=== PATIENT | male | born 1960 | race African-American/Black ===

== ENCOUNTER 2019-07-01 12:12 | Emergency (ER) | payer OTHER ==
[2019-07-01 12:19] VITALS: BP 132/69; PULSE 117; TEMP 98; BMI 21.2
[2019-07-01] MEDS ORDERED: LIDOCAINE HCL 2% JELLY 10 ML CARTRIDGE ONE (13:19)
--- NOTE | 2019-07-01 14:04 | PDOC ---
History of Present Illness - General Chief Complaint: Urinary Problem Stated Complaint: Urinary Problem Time Seen by Provider: 07/01/19 12:55 History Source: Patient Exam Limitations: No Limitations - History of Present Illness Initial Comments: 07/01/19 14:19 58 yo M with a hx of BPH presents to the emergency department with lower abdominal midline pain that has been ongoing this morning with referral from his primary medical doctor to present to the ED. Per the patient, he uses his flomax intermittently and has not followed up with a urologist regarding his prostate in 2 years. He states he tried to urinate this morning but was unable to produce urine. He denies hematuria. Denies hx of nephrolithiasis, urinary bladder/ureter/renal surgery, and fevers. Denies the following: chills, nausea, vomiting, chest pain, SOB, lightheadedness, diarrhea, constipation, and leg pain /swelling. Allergies: NKDA Past History - Past Medical History Allergies/Adverse Reactions: Allergies Allergy/AdvReac Type Severity Reaction Status Date / Time No Known Allergies Allergy Verified 07/01/19 12:19 Home Medications: Ambulatory Orders Azithromycin [Zithromax 250mg Tablets -] 250 mg PO UTDICT #6 tab 02/17/16 Promethazine HCl [Phenergan Plain 6.25 MG/5 ML -] 5 ml PO QID #60 ml 02/17/16 COPD: No - Immunization History Immunization Up to Date: Yes - Psycho Social/Smoking Cessation Hx Smoking History: Never smoked Hx Alcohol Use: No Review of Systems - Review of Systems Able to Perform ROS?: Yes Is the patient limited Finnish proficient: No Constitutional: No: Chills, Diaphoresis, Fever, Weakness HEENTM: No: Eye Pain, Ear Pain, Nose Pain, Throat Pain, Mouth Pain Respiratory: No: Cough, Shortness of Breath, Hemoptysis Cardiac (ROS): No: Chest Pain, Lightheadedness, Palpitations, Syncope, Chest Tightness ABD/GI: No: Constipated, Diarrhea, Nausea, Rectal Bleeding, Vomiting, Tarry Stools : Yes: Other (urine retention). No: Burning, Dysuria Musculoskeletal: No: Back Pain, Joint Pain, Neck Pain Integumentary: No: Bruising, Erythema, Rash Neurological: No: Headache, Numbness, Tingling, Tremors Psychiatric: No: Stressors, Change in Appetite Endocrine: No: Unexplained Weight Gain Hematologic/Lymphatic: No: Anemia *Physical Exam - Vital Signs Last Vital Signs Temp Pulse Resp BP Pulse Ox 98 F 117 H 18 132/69 99 07/01/19 12:15 07/01/19 12:15 07/01/19 12:15 07/01/19 12:15 07/01/19 12:15 - Physical Exam General Appearance: Yes: Nourished, Appropriately Dressed. No: Apparent Distress, Intoxicated HEENT: positive: EOMI, HODAN, Normal Voice, Symmetrical, Pharynx Normal, Hearing Grossly Normal. negative: Pale Conjunctivae, Scleral Icterus (R), Scleral Icterus (L), Muffled/Hoarse voice, Pharyngeal Erythema, Tonsillar Exudate, Tonsillar Erythema, Nasal Congestion, Rhinorrhea, Sinus Tenderness, Excessive drooling Neck: positive: Trachea midline, Supple. negative: Tender, Lymphadenopathy (R) , Lymphadenopathy (L), Tender lateral, Tender midline Respiratory/Chest: positive: Lungs Clear, Normal Breath Sounds. negative: Chest Tender, Respiratory Distress, Accessory Muscle Use, Crackles, Rales, Rhonchi, Stridor, Wheezing Cardiovascular: positive: Regular Rhythm, Regular Rate, S1, S2. negative: Systolic Murmur Gastrointestinal/Abdominal: positive: Normal Bowel Sounds, Tender (lower midline abdominal pain), Flat, Soft, Other (obvious bladder distension) Male Genitalia: positive: normal genitalia. negative: hematuria Lymphatic: negative: Adenopathy Musculoskeletal: positive: Normal Inspection. negative: CVA Tenderness, Vertebral Tenderness Extremity: positive: Normal Capillary Refill, Normal Inspection, Normal Range of Motion. negative: Tender Integumentary: positive: Normal Color, Dry, Warm Neurologic: positive: senior budget analyst II-XII NML intact, Fully Oriented, Alert, Normal Mood/ Affect, Normal Response, Motor Strength 5/5, Other (hearing aids in bilaterally) ED Treatment Course - LABORATORY CBC & Chemistry Diagram: 07/01/19 14:30 07/01/19 14:30 Medical Decision Making - Medical Decision Making 58 yo M with a hx of BPH presents to the emergency department with lower abdominal midline pain that has been ongoing this morning with referral from his primary medical doctor to present to the ED. Initial vitals Initial Vital Signs Temp Pulse Resp BP Pulse Ox 98 F 117 H 18 132/69 99 07/01/19 12:15 07/01/19 12:15 07/01/19 12:15 07/01/19 12:15 07/01/19 12:15 Work up: POCUS shows distended bladder with approximately 1 L of fluid. moderate hydronephrosis noted bilaterally. Catheter 20 faroese placed with 1.1 L urine output. Some blood was noted because of catheter placement trauma. Will rule out infection and TIFFANIE Laboratory Tests 07/01/19 07/01/19 07/01/19 14:30 14:30 14:35 WBC 9.1 RBC 4.24 Hgb 12.9 Hct 38.8 MCV 91.6 MCH 30.4 MCHC 33.2 RDW 12.7 Plt Count 306 MPV 7.6 Absolute Neuts (auto) 8.4 H Neutrophils % 92.4 H D Neutrophils % (Manual) 94.0 H Band Neutrophils % 0.0 Lymphocytes % 3.4 L D Lymphocytes % (Manual) 4.0 L Monocytes % 3.8 Monocytes % (Manual) 2 L Eosinophils % 0.1 D Eosinophils % (Manual) 0.0 Basophils % 0.3 Basophils % (Manual) 0.0 Myelocytes % (Man) 0 Promyelocytes % (Man) 0 Blast Cells % (Manual) 0 Nucleated RBC % 0 Metamyelocytes 0 Hypochromia 0 Platelet Estimate Normal Polychromasia 0 Poikilocytosis 0 Anisocytosis 0 Microcytosis 0 Macrocytosis 0 Sodium 138 Potassium 4.9 Chloride 102 Carbon Dioxide 30 Anion Gap 5 L BUN 14.9 Creatinine 0.8 Est GFR (CKD-EPI)AfAm 114.93 Est GFR (CKD-EPI)NonAf 99.16 Random Glucose 125 H Calcium 9.6 Total Bilirubin 0.6 AST 23 ALT 24 Alkaline Phosphatase 63 Total Protein 7.2 Albumin 4.1 Urine Color Red Urine Appearance Clear Urine pH 7.5 Ur Specific [place] 1.009 L Urine Protein 1+ H Urine Glucose (UA) Negative Urine Ketones Negative Urine Blood 3+ H Urine Nitrite Negative Urine Bilirubin Negative Urine Urobilinogen 1.0 Ur Leukocyte Esterase Trace Urine WBC (Auto) 3 Urine RBC (Auto) 1234 Urine Casts (Auto) 1 U Epithel Cells (Auto) 1.1 Urine Bacteria (Auto) 2.6 Patient to be discharged. I spoke to Dr. Royal Martins who stated he will follow up with the patient at 1:00 pm. The patient is aware to see Dr. Martins and was explicitly told to follow up. Dispo: Discharge 07/01/19 16:04 Discharge - Discharge Information Problems reviewed: Yes Clinical Impression/Diagnosis: Urinary retention Condition: Good Disposition: HOME - Admission No - Follow up/Referral Referrals: Smooth Martins MD [Primary Care Provider] - Millie Martins MD [Staff Physician] - - Patient Discharge Instructions Patient Printed Discharge Instructions: How to Care for Your Birmingham Catheter -- Male, DI for Urinary Retention in Men Additional Instructions: You were seen in the emergency department for your urinary retention. You were given a birmingham today, which is the tubing going to your bladder. I have attached reading material on birmingham catheter care. This is very important. I spoke to Dr. Martins, who is the urologist. He is aware of your condition and wants to see you JULY 05 at 1:00 pm. THIS IS VERY IMPORTANT. Again, please follow up with him, which HIS ADDRESS AND PHONE NUMBER are listed in the discharge papers. PLEASE CALL HIS OFFICE TODAY OR TOMORROW TO ARRANGE THE APPOINTMENT FOR FRIDAY. You need to follow up with him. He has not seen you in two years. Please return to the emergency department if you have worsening symptoms or new concerning symptoms. Thank you. Print Language: SAUDI ARABIAN - Post Discharge Activity Work/Back to School Note: Back to Work
--- NOTE | 2019-07-01 14:24 | PDOC ---
Attending Attestation - Resident Resident Name: MasonEze - ED Attending Attestation I have performed the following: I have examined & evaluated the patient, The case was reviewed & discussed with the resident, I agree w/resident's findings & plan, Exceptions are as noted - HPI HPI: 07/01/19 15:12 Mr. Thomson is a 58-year-old male with a history of deafness who presents emergency department with urinary retention Patient states he has been unable to void since last night. Due to his inability to void, he was up all night unable to sleep due to suprapubic pain. No fevers or chills No prior hematuria No flank pain 07/01/19 15:12 - Physicial Exam PE: 07/01/19 14:23 GENERAL: The patient is in no acute distress, patient seen after placement of Negron catheter (clear urine). ENT: Hearing aid left ear , hard of hearing NECK: Normal range of motion, supple LUNGS: Breath sounds equal, clear to auscultation bilaterally. No wheezes, and no crackles. HEART:Regular rate and rhythm, normal S1 and S2 without murmur, rub or gallop. ABDOMEN: Soft, nontender, normoactive bowel sounds. EXTREMITIES: Normal range of motion, no edema. NEUROLOGICAL: Cranial nerves II through XII grossly intact. Normal speech. No focal neurological deficits. SKIN: Warm, Dry, normal turgor, no rashes or lesions noted. 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 Martins He is actually seen this patient in the past and has wanted to follow-up with him Plan will be to send this patient to see him for follow-up 07/01/19 15:13 Laboratory Tests 07/01/19 07/01/19 14:30 14:35 WBC 9.1 Hgb 12.9 Hct 38.8 Plt Count 306 Urine Blood 3+ H Urine Nitrite Negative Ur Leukocyte Esterase Trace Urine WBC (Auto) 3 Urine RBC (Auto) 1234 07/01/19 15:49 Laboratory Tests 07/01/19 14:30 BUN 14.9 Creatinine 0.8 Will discharge to home Pt can follow up with Urology as an outpatient Return to the ER for any other concerns or complaints
[2019-07-01 14:42] LABS: BASO % 0.3 % (0-2.0); EOS % 0.1 % (0-4.5); HEMATOCRIT 38.8 % (35.4-49); HEMOGLOBIN 12.9 GM/dL (11.7-16.9); LYMPH % 3.4 % (8-40); MCH 30.4 pg (25.7-33.7); MCHC 33.2 g/dl (32.0-35.9); MEAN CELL VOLUME 91.6 fl (80-96); MEAN PLT VOLUME 7.6 fl (7.5-11.1); MONO % 3.8 % (3.8-10.2); NEUT % 92.4 % (42.8-82.8); PLATELET COUNT 306 K/MM3 (134-434); RBC 4.24 M/mm3 (4.00-5.60); RDW 12.7 % (11.9-15.9); WHITE BLOOD COUNT 9.1 K/mm3 (4.0-10.0)
[2019-07-01 15:00] LABS: EPI CELLS 1.1 /HPF (0-5/HPF); HYALINE CASTS 1 /lpf (0-8); PH,URINE 7.5 (5.0-8.0); URINE APPEARANCE CLEAR; URINE BACTERIA 2.6 /hpf (NEGATIVE); URINE BILIRUBIN NEGATIVE (NEGATIVE); URINE COLOR RED; URINE GLUCOSE (UA) NEGATIVE (NEGATIVE); URINE KETONE NEGATIVE (NEGATIVE); URINE LEUK ESTERASE TRACE (NEGATIVE); URINE NITRITE NEGATIVE (NEGATIVE); URINE PROTEIN 1+ (NEGATIVE); URINE RBC 1234 /hpf (0-4); URINE WBC 3 /hpf (0-5)
[2019-07-01 15:21] LABS: ANISOCYTOSIS 0; MACROCYTOSIS 0; PLATELET ESTIMATE NORMAL
[2019-07-01 15:47] LABS: ALBUMIN 4.1 g/dl (3.4-5.0); BILIRUBIN,TOTAL 0.6 mg/dL (0.2-1); BLOOD UREA NITROGEN 14.9 mg/dL (7-18); CALCIUM 9.6 mg/dL (8.5-10.1); CREATININE 0.8 mg/dL (0.55-1.3); POTASSIUM 4.9 mmol/L (3.5-5.1); TOT PROT 7.2 g/dl (6.4-8.2)
== END 2019-07-01 17:36 | disposition home or self-care (01) ==
LOC: JER 12:12
PROC: 0T9B70Z Drainage of Bladder with Drainage Device, Via Natural or Artificial Opening (ICD-10-PCS; principal; 2019-07-01)
PROC: BT4JZZZ Ultrasonography of Kidneys and Bladder (ICD-10-PCS; 2019-07-01)
DX: N40.1 Benign prostatic hyperplasia with lower urinary tract symptoms (principal); R33.8 Other retention of urine
CPT/HCPCS: 36415; 80053; 81003; 85025; 87086; 99283-25

== ENCOUNTER 2019-08-31 15:49 | Emergency (ER) | payer OTHER ==
[2019-08-31 15:59] VITALS: TEMP 98; BMI 21.4
--- NOTE | 2019-08-31 17:02 | PDOC ---
History of Present Illness - General Chief Complaint: Urinary Problem Stated Complaint: PAINFUL URINATION Time Seen by Provider: 08/31/19 16:25 History Source: Patient - History of Present Illness Timing/Duration: reports: getting worse Quality: reports: severe Past History - Past Medical History Allergies/Adverse Reactions: Allergies Allergy/AdvReac Type Severity Reaction Status Date / Time No Known Allergies Allergy Verified 08/31/19 15:59 Home Medications: Ambulatory Orders Azithromycin [Zithromax 250mg Tablets -] 250 mg PO UTDICT #6 tab 02/17/16 Promethazine HCl [Phenergan Plain 6.25 MG/5 ML -] 5 ml PO QID #60 ml 02/17/16 COPD: No - Immunization History Immunization Up to Date: Yes - Psycho Social/Smoking Cessation Hx Smoking History: Never smoked Hx Alcohol Use: No Review of Systems - Review of Systems Constitutional: No: Chills, Fever ABD/GI: Yes: Abdominal cramping. No: Nausea, Vomiting : No: Flank Pain, Hematuria *Physical Exam - Vital Signs Last Vital Signs Temp Pulse Resp BP Pulse Ox 98 F 120 H 18 0/0 L 99 08/31/19 15:55 08/31/19 15:55 08/31/19 15:55 08/31/19 15:55 08/31/19 15:55 - Physical Exam General Appearance: Yes: Appropriately Dressed, Severe Distress HEENT: positive: Normal Voice Respiratory/Chest: negative: Respiratory Distress Gastrointestinal/Abdominal: positive: Tender (to lower bd), Soft Musculoskeletal: negative: CVA Tenderness Integumentary: positive: Dry, Warm Neurologic: positive: Fully Oriented, Alert, Normal Mood/Affect Medical Decision Making - Medical Decision Making 08/31/19 17:00 59-year-old male, h/o BPH on Flomax presents with urinary retention. Last voided was this a.m. but very small amount. Now complaining of lower abdominal pressure. No hematuria, nausea, vomiting, fever or chills. Patient was seen for same in ED several months ago and sent home with Birmingham with leg bag. Follows up with Dr. Martins of urology see exam Urinary retention 2/2 BPH Birmingham inserted w/ ~500 UO UA neg Rpt HR 110 w/ BP 140/84 As per d/w Dr Martins, dc w/ birmingham to leg bag, to f/u in clinic Discharge - Discharge Information Problems reviewed: Yes Clinical Impression/Diagnosis: Urinary retention Condition: Improved Disposition: HOME - Follow up/Referral - Patient Discharge Instructions Additional Instructions: You had a Birmingham inserted for urinary retention Please call Dr. Martins this week to make an appointment to be seen next week - Post Discharge Activity
[2019-08-31 17:10] LABS: EPI CELLS 0.1 /HPF (0-5/HPF); HYALINE CASTS 0 /lpf (0-8); URINE APPEARANCE CLEAR; URINE BACTERIA 0 /hpf (NEGATIVE); URINE BILIRUBIN NEGATIVE (NEGATIVE); URINE COLOR YELLOW; URINE GLUCOSE (UA) NEGATIVE (NEGATIVE); URINE KETONE NEGATIVE (NEGATIVE); URINE LEUK ESTERASE NEGATIVE (NEGATIVE); URINE NITRITE NEGATIVE (NEGATIVE); URINE PROTEIN NEGATIVE (NEGATIVE); URINE RBC 14 /hpf (0-4); URINE UROBILINOGEN 0.2 mg/dL (0.2-1.0); URINE WBC 0 /hpf (0-5)
[2019-08-31 17:48] VITALS: BP 119/64; PULSE 83
== END 2019-08-31 17:49 | disposition home or self-care (01) ==
LOC: JER 15:49
PROC: 0T9B70Z Drainage of Bladder with Drainage Device, Via Natural or Artificial Opening (ICD-10-PCS; principal; 2019-08-31)
DX: N40.1 Benign prostatic hyperplasia with lower urinary tract symptoms (principal); R33.8 Other retention of urine
CPT/HCPCS: 81003; 87086; 99283-25

== ENCOUNTER 2019-11-21 14:36 | Emergency (ER) | payer OTHER ==
[2019-11-21 14:49] VITALS: BP 127/99; PULSE 103; TEMP 98.3; BMI 21.1
--- NOTE | 2019-11-21 15:22 | PDOC ---
History of Present Illness - General Chief Complaint: Urinary Problem Stated Complaint: URINARY PROBLEM Time Seen by Provider: 11/21/19 14:41 History Source: Patient Exam Limitations: No Limitations - History of Present Illness Initial Comments: 11/21/19 15:20 Pt is a 59 y/o male who presents to the ED with complaint of inability to urinate fully all day today. He has a history of kidney stones with lithotripsy on 10/25/19. He had a Negron catheter since that time until 3 days ago. The patient states he was put on 3 days of antibiotics and Flomax. He completed the abx but continues to take the Flomax. The patient states he has tried to urinate many times today and is only dribbling urine. He denies any blood in his urine. He denies any fevers or chills. He admits to severe abdominal pain. Pt is very hard of hearing so history and exam is limited. Past History - Past Medical History Allergies/Adverse Reactions: Allergies Allergy/AdvReac Type Severity Reaction Status Date / Time No Known Allergies Allergy Verified 11/21/19 14:47 Home Medications: Ambulatory Orders Azithromycin [Zithromax 250mg Tablets -] 250 mg PO UTDICT #6 tab 02/17/16 Promethazine HCl [Phenergan Plain 6.25 MG/5 ML -] 5 ml PO QID #60 ml 02/17/16 Sulfamethoxazole/Trimethoprim [Bactrim Ds Tablet] 1 each PO BID #20 tablet 11/21/19 COPD: No - Immunization History Immunization Up to Date: Yes - Psycho Social/Smoking Cessation Hx Smoking History: Never smoked Hx Alcohol Use: No Review of Systems - Review of Systems Comments:: 11/21/19 15:48 Review of Systems Able to Perform ROS?: Yes Constitutional: No: Fever, Chills, Loss of Appetite, Night Sweats, Weakness HEENTM: No: Eye Pain, Vision changes, Ear Pain, Throat Pain, Throat Swelling, Mouth Pain, Difficulty Swallowing Respiratory: No: Cough, Shortness of Breath, Wheezing, Sputum Production Cardiac (ROS): No: Chest Pain, Chest Tightness, Palpitations, Irregular Heart Beat, Edema ABD/GI: No: Nausea, Vomiting, Abdominal Pain, Diarrhea : No Dysuria, No Hematuria, No Frequency, No Urgency; + urinary retention, dribbling urine, no hematuria Musculoskeletal: No: Muscle Pain, Back Pain, Joint Pain, Muscle Weakness, Neck Pain Integumentary: No: Lesions, Rash Neurological: No: Headache, Numbness, Tingling, Weakness, Speech Difficulties *Physical Exam - Vital Signs Last Vital Signs Temp Pulse Resp BP Pulse Ox 98.3 F 103 H 20 127/99 99 11/21/19 14:40 11/21/19 14:40 11/21/19 14:40 11/21/19 14:40 11/21/19 14:40 - Physical Exam 11/21/19 15:49 General Appearance: Nourished, Appropriately Dressed, No Distress HEENT: EOMI, Normal Voice, Very hard of hearing Neck: Supple, No Lymphadenopathy (R), No Lymphadenopathy (L), No Rigidity, No Decreased range of motion Respiratory/Chest: Lungs Clear, Normal Breath Sounds. No Respiratory Distress, No Accessory Muscle Use Cardiovascular: Regular Rhythm, Regular Rate, S1, S2 Gastrointestinal/Abdominal: Normal Bowel Sounds, Soft. Non-tender, No Guarding, No Rebound, No Rigidity; significant suprapubic discomfort secondary to fullness, no cva tenderness b/l Musculoskeletal: Normal Inspection. No Decreased Range of Motion Extremity: Normal Capillary Refill, Normal Inspection Integumentary: Normal Color, Dry. No Rash Neurologic: central communications specialist II-XII NML intact, Fully Oriented, Alert, Normal Mood/Affect, Normal Response Medical Decision Making - Medical Decision Making 11/21/19 15:51 Assessment: Pt is a 59 y/o male with urinary retention since earlier today. Plan: -urinary catheter (attempted twice with 14G and 16G Negron without success), 14G Coude catheter passed and 500cc out of clear yellow urine immediately -Negron to leg bag -Ua/UCX -Will reassess 11/21/19 16:10 Pt feeling much better after the Negron was placed. He will be discharged with a Negron to leg bag. He understands that he must follow up with his urologist this week and he will call him tomorrow for further evaluation and treatment. He will be discharged with an antibiotic for his urine. He understands and agrees with this treatment and plan and he is stable for discharge. Discharge - Discharge Information Problems reviewed: Yes Clinical Impression/Diagnosis: Acute urinary retention Condition: Stable Disposition: HOME - Additional Discharge Information Prescriptions: Sulfamethoxazole/Trimethoprim [Bactrim Ds Tablet] 1 each PO BID #20 tablet - Follow up/Referral - Patient Discharge Instructions Patient Printed Discharge Instructions: DI for Urinary Retention in Men, How to Care for Your Negron Catheter -- Male Additional Instructions: Be sure to call your urologist tomorrow to schedule an appointment this week. T greyson your antibiotics and complete the entire course. Keep your Negron clean. - Post Discharge Activity
[2019-11-21 15:56] LABS: EPI CELLS 5 /uL (0-25.1); HYALINE CASTS 2 /uL (0-3.1); PH,URINE 5.5 (5.0-8.0); URINE APPEARANCE CLEAR; URINE BACTERIA ABOVE LINEARITY /uL (0-1359); URINE BILIRUBIN NEGATIVE (NEGATIVE); URINE COLOR YELLOW; URINE GLUCOSE (UA) NEGATIVE (NEGATIVE); URINE KETONE NEGATIVE (NEGATIVE); URINE LEUK ESTERASE TRACE (NEGATIVE); URINE NITRITE POSITIVE (NEGATIVE); URINE PROTEIN NEGATIVE (NEGATIVE); URINE RBC 8 /uL (0-23.9); URINE UROBILINOGEN 0.2 mg/dL (0.2-1.0); URINE WBC 53 /uL (0-25.8)
[2019-11-21] MEDS ORDERED: SULFAMETHOXAZOLE/TRIMETHOPRIM 800MG/160MG D.S. TABLET PO ONE (16:18)
[2019-11-21] MEDS ORDERED: SULFAMETHOXAZOLE/TRIMETHOPRIM 800MG/160MG D.S. TABLET ONE (16:59)
== END 2019-11-21 17:09 | disposition home or self-care (01) ==
LOC: JERFT 14:36 → JER 14:36 → JERFT 17:09
DX: R33.9 Retention of urine, unspecified (principal)
CPT/HCPCS: 81003; 87086; 87186; 99283-25

== ENCOUNTER 2020-03-25 09:41 | Emergency (ER) | payer OTHER ==
[2020-03-25 09:48] VITALS: BP 131/75; PULSE 58; TEMP 98.3; BMI 24.4
[2020-03-25] MEDS ORDERED: KETOROLAC TROMETHAMINE 30 MG/1 ML VIAL IM ONE (10:50)
[2020-03-25] MEDS ORDERED: diazePAM 2 MG TABLET PO ONE (10:50)
--- NOTE | 2020-03-25 10:51 | PDOC ---
History of Present Illness - General Chief Complaint: Back Pain Stated Complaint: BACK PAIN Time Seen by Provider: 03/25/20 10:09 History Source: Patient Exam Limitations: No Limitations - History of Present Illness Initial Comments: 03/25/20 11:22 CHIEF COMPLAINT: Back pain HISTORY OF PRESENT ILLNESS: This is a 59-year-old male with a history of kidney stones s/p "procedure" in October,, [id number] who presents complaining of low back pain. He reports that he has had intermittent pain since doing heavy lifting for work about 5 years ago. He states that this pain feels more similar to his muscular pain than his kidney stones. He reports that the pain is in his left lower back and radiates down his left leg. He denies dysuria, hematuria, fevers, limb weakness, and change in bowel function. Vital signs on arrival are all within normal limits. REVIEW OF SYSTEMS: GENERAL/CONSTITUTIONAL: No fever or chills. No weakness. HEAD, EYES, EARS, NOSE AND THROAT: No change in vision. No change in hearing. No sore throat. CARDIOVASCULAR: Reports chest pain. No shortness of breath. RESPIRATORY: Denies cough, hemoptysis. MUSCULOSKELETAL: See HPI. SKIN: No rash or lesions. NEUROLOGIC: No headache, vertigo, loss of consciousness, or change in strength/sensation. ALLERGIC/IMMUNOLOGIC: No hives or skin allergy. PHYSICAL EXAM: GENERAL: Awake, alert, and oriented to person/place/time, in no acute distress. HEAD: No signs of trauma, normocephalic, atraumatic. EYES: PERRLA, EOMI, sclera anicteric, conjunctiva clear. LUNGS: No distress, speaks in full sentences, clear to auscultation bilaterally. HEART: Regular rate and rhythm, normal S1 and S2, no murmurs appreciated, peripheral pulses normal and equal bilaterally. ABDOMEN: Soft, nontender, normoactive bowel sounds. No guarding, no rebound. No masses. Anterior surgical scars. EXTREMITIES: 5/5 upper and lower extremity strength bilaterally. NEUROLOGICAL: Cranial nerves II through XII grossly intact. Normal speech, normal gait, no focal sensorimotor deficits. No saddle anesthesia. SKIN: Warm, Dry, normal turgor, no rashes or lesions noted. Past History - Medical History Allergies/Adverse Reactions: Allergies Allergy/AdvReac Type Severity Reaction Status Date / Time No Known Allergies Allergy Verified 03/25/20 09:43 Home Medications: Ambulatory Orders Tamsulosin HCl [Flomax] 0.4 mg PO DAILY 03/25/20 COPD: No - Immunization History Immunization Up to Date: Yes - Psycho-Social/Smoking History Smoking History: Never smoked - Substance Abuse Hx (Audit-C & DAST Scrn) How often the patient has a drink containing alcohol: Never Score: In Men: 4 or > Positive; In Women: 3 or > Positive: 0 Screen Result (Pos requires Nsg. Audit-10AR): Negative In the last yr the pt used illegal drug/Rx for NonMed reason: No Score: Yes response is considered Positive: 0 Screen Result (Positive result requires Nsg. DAST-10): Negative *Physical Exam - Vital Signs Last Vital Signs Temp Pulse Resp BP Pulse Ox 98.3 F 58 L 18 131/75 99 03/25/20 09:45 03/25/20 09:45 03/25/20 09:45 03/25/20 09:45 03/25/20 09:45 Medical Decision Making - Medical Decision Making 03/25/20 11:30 A/P: 59-year-old male with history of both muscular low back pain and kidney stones presenting with low back pain radiating down left leg. No urinary or systemic symptoms. No neurologic deficits on exam. 1. UA/culture 2. Toradol 30mg IM for pain 3. Re-assess 03/25/20 13:41 Pain improved following Toradol. UA with 2+ leuks. Will obtain CT spiral to rule out kidney stones in setting of UTI. CT reviewed: Pt is s/p nephrectomy on left. No signs of acute process. Pt feeling better. Will dc with Keflex for UTI and short course of Tramadol for pain given solitary kidney. Discharge - Discharge Information Problems reviewed: Yes Clinical Impression/Diagnosis: Urinary tract infection, Back pain Condition: Stable Disposition: HOME - Follow up/Referral Referrals: Smooth Martins MD [Primary Care Provider] - - Patient Discharge Instructions Patient Printed Discharge Instructions: DI for Urinary Tract Infection (UTI), DI for Low Back Pain Additional Instructions: -Rest and apply heat to the painful area. -Take Tramadol as needed for pain. This medication may cause drowsiness, so do not drive while using it. -Take Keflex as prescribed for urinary tract infection. It is important that you finish all of the medication. -Follow up with your primary care doctor. -Return for worsening pain, fever, weakness/numbness to the legs, or any other concerning symptoms - Post Discharge Activity
[2020-03-25] MEDS ORDERED: diazePAM 2 MG TABLET ONE (10:55)
[2020-03-25] MEDS ORDERED: KETOROLAC TROMETHAMINE 30 MG/1 ML VIAL ONE (10:55)
[2020-03-25 11:42] LABS: EPI CELLS 0 /uL (0-25.1); HYALINE CASTS 0 /uL (0-3.1); PH,URINE 5.5 (5.0-8.0); URINE APPEARANCE Error; URINE BACTERIA 9038 /uL (0-1359); URINE BILIRUBIN NEGATIVE (NEGATIVE); URINE COLOR YELLOW; URINE GLUCOSE (UA) NEGATIVE (NEGATIVE); URINE KETONE NEGATIVE (NEGATIVE); URINE LEUK ESTERASE 2+ (NEGATIVE); URINE NITRITE NEGATIVE (NEGATIVE); URINE PROTEIN NEGATIVE (NEGATIVE); URINE RBC 5 /uL (0-23.9); URINE WBC 199 /uL (0-25.8)
[2020-03-25] MEDS ORDERED: CEPHALEXIN MONOHYDRATE 500 MG CAPSULE (UD) PO ONE (14:13)
[2020-03-25] MEDS ORDERED: CEPHALEXIN MONOHYDRATE 500 MG CAPSULE (UD) ONE (14:15)
== END 2020-03-25 14:29 | disposition home or self-care (01) ==
LOC: JER 09:41
PROC: 3E0233Z Introduction of Anti-inflammatory into Muscle, Percutaneous Approach (ICD-10-PCS; principal; 2020-03-25)
DX: N39.0 Urinary tract infection, site not specified (principal); M54.9 Dorsalgia, unspecified
CPT/HCPCS: 74176-TC; 81003; 87086; 87186; 99285-25

== ENCOUNTER 2020-03-29 18:20 | Emergency (ER) | payer OTHER ==
[2020-03-29 18:36] VITALS: BP 132/82; PULSE 72; TEMP 98.7; BMI 19.6
[2020-03-29] MEDS ORDERED: KETOROLAC TROMETHAMINE 60 MG/2 ML VIAL IM ONE (19:15)
[2020-03-29] MEDS ORDERED: KETOROLAC TROMETHAMINE 60 MG/2 ML VIAL ONE (20:10)
--- NOTE | 2020-03-29 20:46 | PDOC ---
History of Present Illness - General Chief Complaint: Pain Stated Complaint: PAIN Time Seen by Provider: 03/29/20 18:48 - History of Present Illness Initial Comments: 03/29/20 20:44 59-year-old male seen 2 days ago for a urinary tract infection getting better however continues to have back pain diagnosed with a renal cyst he is aware of that and he will follow-up with nephrology however he is having pain about his lower back. Past History - Medical History Allergies/Adverse Reactions: Allergies Allergy/AdvReac Type Severity Reaction Status Date / Time No Known Allergies Allergy Verified 03/29/20 18:49 Home Medications: Ambulatory Orders Cephalexin [Keflex] 500 mg PO BID #14 capsule 03/25/20 Tamsulosin HCl [Flomax] 0.4 mg PO DAILY 03/25/20 Tramadol HCl 50 mg PO Q6H PRN #12 tablet MDD 4 03/25/20 COPD: No - Immunization History Immunization Up to Date: Yes - Psycho-Social/Smoking History Smoking History: Never smoked Have you smoked in the past 12 months: No Information on smoking cessation initiated: No - Substance Abuse Hx (Audit-C & DAST Scrn) How often the patient has a drink containing alcohol: Never Score: In Men: 4 or > Positive; In Women: 3 or > Positive: 0 Screen Result (Pos requires Nsg. Audit-10AR): Negative In the last yr the pt used illegal drug/Rx for NonMed reason: No Score: Yes response is considered Positive: 0 Screen Result (Positive result requires Nsg. DAST-10): Negative Review of Systems - Review of Systems Constitutional: No: Fever : No: Burning, Dysuria, Discharge Musculoskeletal: Yes: Back Pain *Physical Exam - Vital Signs Last Vital Signs Temp Pulse Resp BP Pulse Ox 98.7 F 72 17 132/82 100 03/29/20 18:33 03/29/20 18:33 03/29/20 18:33 03/29/20 18:33 03/29/20 18:33 - Physical Exam 03/29/20 20:45 Lumbar spine skin color temperature normal range of motion is slightly decreased. No midline tenderness. Moderate bilateral paralumbar musculature spasm and tenderness 5 out of 5 strength bilateral lower extremities without gross sensorimotor deficits thighs and calves are soft and nontender neurovascular intact ED Treatment Course - Medications Given in the ED: ED Medications Discontinued Medications Generic Name Dose Route Start Last Admin Trade Name Chadwick PRN Reason Stop Dose Admin Ketorolac Tromethamine 60 mg 03/29/20 19:15 03/29/20 20:13 Toradol Injection - IM 03/29/20 19:16 60 mg ONCE ONE Administration Medical Decision Making - Medical Decision Making 03/29/20 20:45 It is uncertain whether this is lumbar spasm or pain from his renal cyst is more likely lumbar spasm. Patient feels better after Toradol he will follow-up with nephrology as well as orthopedic surgery. I have reviewed the pathophysiology with the patient. They are in agreement with the treatment plan all questions were answered to their satisfaction. Understanding for follow-up without fail was also conveyed to the patient. Again they are in agreement. Discharge - Discharge Information Problems reviewed: Yes Clinical Impression/Diagnosis: Back pain Condition: Improved Disposition: HOME - Admission No - Follow up/Referral Referrals: Smooth Martins MD [Primary Care Provider] - Calderon Qureshi MD [Staff Physician] - Gilbert Chacon DO [Staff Physician] - - Patient Discharge Instructions Additional Instructions: Please without fail follow-up with nephrology as well as orthopedic surgery. You need to be worked up for your cyst on your kidney as well as your lower back pain. Return to the emergency room for worsening symptoms. - Post Discharge Activity
== END 2020-03-29 21:15 | disposition home or self-care (01) ==
LOC: JER 18:20
PROC: 3E023GC Introduction of Other Therapeutic Substance into Muscle, Percutaneous Approach (ICD-10-PCS; principal; 2020-03-29)
DX: M54.5 Low back pain (principal)
CPT/HCPCS: 99284-25

== ENCOUNTER 2020-04-01 12:26 | Emergency (ER) | payer OTHER ==
[2020-04-01 12:35] VITALS: BP 153/90; PULSE 60; TEMP 98.6; BMI 21.7
--- NOTE | 2020-04-01 12:38 | PDOC ---
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 Last time he was able to urinate was last night. He had a prostate biopsy 3 days ago where he was given antibiotics prophylactically that was discontinued yesterday. He follows up with Dr. Zeb Schafer as his urologist. His next appointment is April 12 for follow up on the procedure. He denies fevers, chills, nvd, costovertebral tenderness, suprapubic tenderness, cp, sob. History was obtained by patient and his sister (Fide). Past History - Medical History Allergies/Adverse Reactions: Allergies Allergy/AdvReac Type Severity Reaction Status Date / Time No Known Allergies Allergy Verified 04/01/20 12:34 Home Medications: Ambulatory Orders Tamsulosin HCl [Flomax] 0.4 mg PO DAILY 03/25/20 Finasteride [Proscar -] 5 mg PO DAILY #14 tablet 04/01/20 Sulfamethoxazole/Trimethoprim [Bactrim Ds -] 1 tab PO BID #14 tablet 04/01/20 COPD: No - Immunization History Immunization Up to Date: Yes - Psycho-Social/Smoking History Smoking History: Never smoked Have you smoked in the past 12 months: No - Substance Abuse Hx (Audit-C & DAST Scrn) How often the patient has a drink containing alcohol: Never Score: In Men: 4 or > Positive; In Women: 3 or > Positive: 0 Screen Result (Pos requires Nsg. Audit-10AR): Negative In the last yr the pt used illegal drug/Rx for NonMed reason: No Score: Yes response is considered Positive: 0 Screen Result (Positive result requires Nsg. DAST-10): Negative Review of Systems - Review of Systems Constitutional: No: Chills, Diaphoresis, Fever HEENTM: No: Recent change in vision, Double Vision Respiratory: No: Cough, Shortness of Breath Cardiac (ROS): No: Chest Pain, Palpitations ABD/GI: No: Constipated, Diarrhea, Nausea, Vomiting : Yes: Urgency, Other (urinary retention). No: Dysuria, Discharge Musculoskeletal: No: Back Pain, Joint Pain, Joint Swelling Integumentary: No: Erythema, Flushing, Rash Neurological: No: Headache, Ataxia, Dizziness Psychiatric: No: Anxiety, Depression, Mood Swings Endocrine: No: Intolerance to Cold, Intolerance to Heat Hematologic/Lymphatic: No: Anemia, Easy Bruising *Physical Exam - Vital Signs Last Vital Signs Temp Pulse Resp BP Pulse Ox 98.6 F 60 16 153/90 98 04/01/20 12:33 04/01/20 12:33 04/01/20 12:33 04/01/20 12:33 04/01/20 12:33 - Physical Exam General Appearance: Yes: Appropriately Dressed. No: Apparent Distress HEENT: positive: EOMI, Normal Voice, Other (difficulty hearing) Neck: negative: Tender, Rigid Respiratory/Chest: positive: Lungs Clear, Normal Breath Sounds. negative: Respiratory Distress Cardiovascular: positive: Regular Rhythm, Regular Rate, S1, S2 Gastrointestinal/Abdominal: positive: Flat, Other (pubic distention). negative: Tender, Organomegaly Musculoskeletal: positive: Normal Inspection. 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 Bedside US revealed urinary retention. [place] was placed to remove 350cc of urine. Pt feels better after removal. Consulted with the physician covering for Dr. Zeb Schafer who wanted to place the pt on Finesteride and Bactrim, leave the birmingham in and he will evaluate him at his office on the . Pt discharged in stable condition with urology followup. Discharge - Discharge Information Problems reviewed: Yes Clinical Impression/Diagnosis: Urinary retention Disposition: HOME - Admission No - Additional Discharge Information Prescriptions: Sulfamethoxazole/Trimethoprim [Bactrim Ds -] 1 tab PO BID #14 tablet Finasteride [Proscar -] 5 mg PO DAILY #14 tablet - Follow up/Referral Referrals: Smooth Martins MD [Primary Care Provider] - - Patient Discharge Instructions Additional Instructions: Follow up with your PCP and urologist (04/12/2020) for follow up with your obstructive uropathy. Continue your home regimen to care for your birmingham which includes maintaining a clean site and draining the birmingham as needed. We have prescribed 2 new medications that you should take up until your appointment with Dr. Schafer. Return to the ED if you experience worsening retention, fevers, chills, nausea, vomiting, abdominal pain, flank pain. - Post Discharge Activity
[2020-04-01] MEDS ORDERED: LIDOCAINE HCL 2% JELLY (5 ML/TUBE) ONE (12:39)
[2020-04-01] MEDS ORDERED: LIDOCAINE HCL 2% JELLY 10 ML CARTRIDGE PR ONE (12:58)
[2020-04-01 13:20] LABS: BASO % 0.8 % (0-2.0); EOS % 0.6 % (0-4.5); HEMATOCRIT 38.9 % (35.4-49); HEMOGLOBIN 12.9 GM/dL (11.7-16.9); LYMPH % 11.5 % (8-40); MCH 30.5 pg (25.7-33.7); MCHC 33.3 g/dl (32.0-35.9); MEAN CELL VOLUME 91.6 fl (80-96); MONO % 7.1 % (3.8-10.2); PLATELET COUNT 226 K/MM3 (134-434); RBC 4.24 M/mm3 (4.00-5.60); RDW 13.1 % (11.9-15.9)
[2020-04-01 13:29] LABS: EPI CELLS 3 /uL (0-25.1); HYALINE CASTS 0 /uL (0-3.1); URINE APPEARANCE CLEAR; URINE BACTERIA 8 /uL (0-1359); URINE BILIRUBIN NEGATIVE (NEGATIVE); URINE COLOR YELLOW; URINE GLUCOSE (UA) NEGATIVE (NEGATIVE); URINE KETONE NEGATIVE (NEGATIVE); URINE LEUK ESTERASE NEGATIVE (NEGATIVE); URINE NITRITE NEGATIVE (NEGATIVE); URINE PROTEIN NEGATIVE (NEGATIVE); URINE RBC 154 /uL (0-23.9); URINE WBC 4 /uL (0-25.8)
[2020-04-01 13:36] LABS: BLOOD UREA NITROGEN 18.8 mg/dL (7-18); CALCIUM 9.5 mg/dL (8.5-10.1); CREATININE 1.1 mg/dL (0.55-1.3); POTASSIUM 4.2 mmol/L (3.5-5.1)
--- NOTE | 2020-04-01 14:12 | PDOC ---
Documentation entered by Will Alicea SCRIBE, acting as scribe for Lois Jenkins MD. Lois Jenkins MD: This documentation has been prepared by the Deanne nunez Aaron, SCRIBE, under my direction and personally reviewed by me in its entirety. I confirm that the documentation accurately reflects all work, treatment, procedures, and medical decision making performed by me. Attending Attestation - Resident Resident Name: Lorraine Orlando - HPI HPI: 04/01/20 14:01 The patient is a 59 year old male with a significant PMH of left nephrectomy, BPH, nephrolithiasis, recurrent uti, and renal cysts who presents to the emergency department for urinary retention. Patient reports having a prostate biopsy 3 days ago and was given antibiotics (discontinued yesterday). Patient scheduled to follow up with urologist on Apr 12. The patient denies fever, chills, nausea, vomiting, diarrhea, chest pain, SOB, or any other symptoms. Allergies: NKDA Past surgical history: left nephrectomy Urologist: Dr. Zeb Schafer - Physicial Exam PE: 04/01/20 14:09 Agree with resident exam. PAtient is alert and oriented in no acute distress. Abdomen is soft, non distended, non tender, without guarding or rebound. Birmingham is in place draining clear yellow urine. 04/01/20 14:13 - Medical Decision Making 04/01/20 14:14 Pt presents to the ED complaining of urinary retention. Resolved after placement of birmingham in the ED with 700 cc out. Will discharge home. Discharge - Discharge Information Problems reviewed: Yes Clinical Impression/Diagnosis: Urinary retention Disposition: HOME - Additional Discharge Information Prescriptions: Sulfamethoxazole/Trimethoprim [Bactrim Ds -] 1 tab PO BID #14 tablet Finasteride [Proscar -] 5 mg PO DAILY #14 tablet - Follow up/Referral Referrals: Smooth Martins MD [Primary Care Provider] - - Patient Discharge Instructions Additional Instructions: Follow up with your PCP and urologist (04/12/2020) for follow up with your obstructive uropathy. Continue your home regimen to care for your birmingham which includes maintaining a clean site and draining the birmingham as needed. We have prescribed 2 new medications that you should take up until your appointment with Dr. Schafer. Return to the ED if you experience worsening retention, fevers, chills, nausea, vomiting, abdominal pain, flank pain. - Post Discharge Activity
== END 2020-04-01 14:33 | disposition home or self-care (01) ==
LOC: SUPCPDRO 12:26 → JER 12:26
DX: R33.9 Retention of urine, unspecified (principal)
CPT/HCPCS: 36415; 80048; 81003; 85025; 87086; 99284-25

== ENCOUNTER 2021-02-18 05:57 | Emergency (ER) | payer OTHER ==
[2021-02-18 06:20] VITALS: TEMP 98.3; BMI 21.7
[2021-02-18 06:49] LABS: EPI CELLS 1 /uL (0-25.1); HYALINE CASTS 0 /uL (0-3.1); PH,URINE 5.5 (5.0-8.0); URINE APPEARANCE CLEAR; URINE BACTERIA 1 /uL (0-1359); URINE BILIRUBIN NEGATIVE (NEGATIVE); URINE COLOR YELLOW; URINE GLUCOSE (UA) NEGATIVE (NEGATIVE); URINE KETONE NEGATIVE (NEGATIVE); URINE LEUK ESTERASE NEGATIVE (NEGATIVE); URINE NITRITE NEGATIVE (NEGATIVE); URINE PROTEIN NEGATIVE (NEGATIVE); URINE RBC 5 /uL (0-23.9); URINE UROBILINOGEN 0.2 mg/dL (0.2-1.0); URINE WBC 1 /uL (0-25.8)
[2021-02-18 07:48] VITALS: BP 130/94; PULSE 58
== END 2021-02-18 08:25 | disposition home or self-care (01) ==
LOC: JER 05:57
DX: R33.9 Retention of urine, unspecified (principal)
CPT/HCPCS: 81003; 87086; 99283-25

== ENCOUNTER 2021-09-19 17:37 | Emergency (ER) | payer OTHER ==
[2021-09-19 17:52] VITALS: BP 121/78; PULSE 71; TEMP 97.9; BMI 19.9
[2021-09-19] MEDS ORDERED: ACETAMINOPHEN 500 MG TABLET (FP) PO ONE (18:34)
[2021-09-19] MEDS ORDERED: ACETAMINOPHEN 325 MG TABLET (FP) ONE (18:41)
[2021-09-19 19:18] LABS: BASO % 0.8 % (0-2.0); HEMATOCRIT 39.5 % (35.4-49); HEMOGLOBIN 13.1 GM/dL (11.7-16.9); MCHC 33.1 g/dl (32.0-35.9); MEAN CELL VOLUME 90.6 fl (80-96); MEAN PLT VOLUME 7.4 fl (7.5-11.1); MONO % 10.1 % (3.8-10.2); NEUT % 58.1 % (42.8-82.8); PLATELET COUNT 279 10^3/uL (134-434); RBC 4.36 M/mm3 (4.00-5.60); RDW 13.1 % (11.9-15.9); WHITE BLOOD COUNT 4.2 K/mm3 (4.0-10.0)
[2021-09-19 19:26] LABS: INR 1.09 (0.83-1.09); PROTHROMBIN TIME (PATIENT) 12.5 SEC (9.7-13.0)
[2021-09-19 19:29] LABS: ALBUMIN 4.1 g/dl (3.4-5.0); BLOOD UREA NITROGEN 17.8 mg/dL (7-18)
[2021-09-19 19:33] LABS: BILIRUBIN,TOTAL 0.8 mg/dL (0.2-1); TOT PROT 7.7 g/dl (6.4-8.2)
[2021-09-19 19:38] LABS: PH,URINE 7.5 (5.0-8.0); URINE APPEARANCE CLEAR; URINE BILIRUBIN NEGATIVE (NEGATIVE); URINE COLOR YELLOW; URINE GLUCOSE (UA) NEGATIVE (NEGATIVE); URINE KETONE NEGATIVE (NEGATIVE); URINE LEUK ESTERASE NEGATIVE (NEGATIVE); URINE NITRITE NEGATIVE (NEGATIVE); URINE PROTEIN NEGATIVE (NEGATIVE)
== END 2021-09-19 22:08 | disposition home or self-care (01) ==
LOC: JER 17:37
DX: R10.32 Left lower quadrant pain (principal)
CPT/HCPCS: 36415; 74176-TC; 80053; 81003; 83605; 83690; 85025; 85610; 85730; 87086; 99284-25

== ENCOUNTER 2025-02-25 13:15 | Emergency (ER) | payer OTHER ==
[2025-02-25 13:28] VITALS: BP 126/97; PULSE 88; RESP 20; TEMP 97.8; BMI 22.4
[2025-02-25] MEDS ORDERED: LIDOCAINE 4% PATCH TP ONE (13:52)
[2025-02-25] MEDS ORDERED: ACETAMINOPHEN 325 MG TABLET (FP) ONE (13:52)
[2025-02-25] MEDS: LIDOCAINE 4% PATCH TP ONE (13:56)
[2025-02-25] MEDS: ACETAMINOPHEN 500 MG TABLET (FP) PO ONE (13:56)
[2025-02-25] MEDS ORDERED: METHOCARBAMOL 500 MG TABLET ONE (15:26)
[2025-02-25] MEDS: METHOCARBAMOL 750 MG TABLET PO ONE (15:48)
[2025-02-25] MEDS ORDERED: LIDOCAINE PATCH REMOVAL MC ONE (22:00)
== END 2025-02-25 15:49 | disposition home or self-care (01) ==
LOC: JERFT 13:15
DX: S39.012A Strain of muscle, fascia and tendon of lower back, initial encounter (principal); M79.9 Soft tissue disorder, unspecified; X50.0XXA Overexertion from strenuous movement or load, initial encounter
CPT/HCPCS: 72131-TC; 99284-25